=== PATIENT | male | born 1955 | race Caucasian/White ===

== ENCOUNTER 2022-11-05 21:43 | Observation (INO) | payer MEDICARE, OTHER ==
[2022-11-05] MEDS ORDERED: Sodium Chloride 0.9% 1,000 ML IV ONE (21:52)
[2022-11-05] MEDS ORDERED: Lactated Ringers 1,000 ML IV SCH (22:00)
[2022-11-05 23:06] LABS: CARBON DIOXIDE,CO2 29.2 mmol/L (21.0-32.0); POTASSIUM,K 4.1 mmol/L (3.5-5.1)
[2022-11-05] MEDS ORDERED: Insulin Regular, Human 100 Units/ML 10 ML Vial SUBCUT ONE ×2 (23:07→23:31)
[2022-11-05] MEDS ORDERED: Glucagon,Human Recombinant 1 MG Vial IM PRN ×2 (23:07→23:31)
[2022-11-05] MEDS ORDERED: 50% Dextrose in Water 50 ML Syringe IVPUSH PRN ×2 (23:07→23:31)
[2022-11-05 23:12] LABS: CORONAVIRUS COVID-19 NAA NEGATIVE (NEGATIVE); INFLUENZA A NAA NEGATIVE (NEGATIVE); INFLUENZA B NAA NEGATIVE (NEGATIVE)
[2022-11-06] MEDS ORDERED: 50% Dextrose in Water 50 ML Syringe IVPUSH PRN ×2 (00:15→10:30)
[2022-11-06] MEDS ORDERED: Lactated Ringers 1,000 ML IV SCH (00:15)
[2022-11-06] MEDS ORDERED: Glucagon,Human Recombinant 1 MG Vial IM PRN ×2 (00:15→10:30)
[2022-11-06] MEDS ORDERED: Insulin Regular, Human 100 Units/ML 10 ML Vial SUBCUT ONE (00:15)
[2022-11-06 00:20] LABS: HEMOGLOBIN A1C 10.5 %
[2022-11-06] MEDS ORDERED: Insulin Regular, Human 100 Units/ML 10 ML Vial IVPUSH ONE (01:52)
[2022-11-06] MEDS ORDERED: Insulin Glargine,Hum.Rec.Anlog 100 UNIT/ML 3 ML Pen SUBCUT SCH (01:53)
[2022-11-06] MEDS ORDERED: Acetaminophen 325 MG Tab PO PRN (01:53)
[2022-11-06 06:12] LABS: CARBON DIOXIDE,CO2 30.9 mmol/L (21.0-32.0); POTASSIUM,K 3.2 mmol/L (3.5-5.1)
[2022-11-06] MEDS ORDERED: Potassium Chloride 20 MEQ Tab.ER PO ONE (11:01)
[2022-11-06] MEDS ORDERED: Insulin Aspart 100 Units/ML 3 ML Pen SUBCUT SCH (11:30)
== END 2022-11-06 14:00 | disposition home or self-care (01) ==
LOC: MW.ED 21:43 → MW.MS 11-06 00:01
PROVIDERS: ADMIT Internal Medicine; ATTEND Internal Medicine
DX: E10.65 Type 1 diabetes mellitus with hyperglycemia (principal); I10 Essential (primary) hypertension; M10.9 Gout, unspecified; I44.5 Left posterior fascicular block; Z79.899 Other long term (current) drug therapy; Z79.4 Long term (current) use of insulin; Z88.6 Allergy status to analgesic agent; Z98.890 Other specified postprocedural states; Z87.891 Personal history of nicotine dependence; Z20.822 Contact with and (suspected) exposure to COVID-19
CPT/HCPCS: 0240U; 36415; 80048; 80053; 81003; 82009; 82803; 82947; 83036; 83605; 83690; 83735; 85025; 93005; 96360; 96361; 99285; A9270; G0378; J1815; J7120